=== PATIENT | female | born 1955 | race Asian ===

== ENCOUNTER 2017-05-13 12:21 | Emergency (ER) | payer BC ==
[~2017-05-13] VITALS: Ht 160 cm; Wt 49.9 kg
[2017-05-13 12:46] VITALS: BP_SYST 123
--- NOTE | 2017-05-13 13:37 | NUR ---
PT PLACED IN ROOM 6, ENDORSED CARE TO SINGH SERRANO.
--- NOTE | 2017-05-13 13:57 | NUR ---
ER at bedside examining patient.
--- NOTE | 2017-05-13 14:07 | NUR ---
Patient given written and verbal discharge instructions and verbalizes understanding. ER MD discussed with patient the results and treatment provided. Patient in stable condition. ID arm band removed. Rx of PREDNISONE given. Patient educated on pain management and to follow up with PMD. Pain Scale . Opportunity for questions provided and answered.
[2017-05-13 14:08] VITALS: BP_SYST 123
== END 2017-05-13 14:08 | disposition home or self-care (01) ==
LOC: SED 12:21
DX: T78.40XA Allergy, unspecified, initial encounter (principal); E78.00 Pure hypercholesterolemia, unspecified; X58.XXXA Exposure to other specified factors, initial encounter
CPT/HCPCS: 99283